=== PATIENT | female | born 1995 | race Caucasian/White ===

== ENCOUNTER 2023-03-01 10:49 | Emergency (ER) | payer BC ==
[~2023-03-01] VITALS: Ht 165.1 cm; Wt 73.0 kg
[2023-03-01 10:56] VITALS: O2SAT 98
[2023-03-01 16:22] VITALS: BP 132/87; PULSE 65; RESP 19; TEMP 97.3
== END 2023-03-01 16:26 | disposition home or self-care (01) ==
LOC: ER 10:59
DX: S01.111D Laceration without foreign body of right eyelid and periocular area, subsequent encounter (principal); Z48.00 Encounter for change or removal of nonsurgical wound dressing; Z90.49 Acquired absence of other specified parts of digestive tract; Z98.890 Other specified postprocedural states; X58.XXXD Exposure to other specified factors, subsequent encounter
CPT/HCPCS: 99281